=== PATIENT | female | born 1980 | race American Indian/Alaskan Native ===

== ENCOUNTER 2017-10-07 01:21 | Emergency (ER) | payer OTHER ==
[2017-10-07 01:41] VITALS: BP 114/77
[2017-10-07] MEDS ORDERED: ULTRAM PO ONE (03:54)
--- NOTE | 2017-10-07 03:58 | Emergency Department Report ---
ED ENT HPI - General Chief complaint: Dental/Oral Stated complaint: TOOTHACHE,HEADACHE Source: patient Mode of arrival: Ambulatory Limitations: No Limitations - History of Present Illness Initial comments: 37-year-old -[place] female comes to the emergency room reporting that she has right-sided lower tooth a pain and feels that her right side of her face is swollen for 2 days. Patient reports this is taken extra strength Tylenol as well as Motrin and pain still present. Patient reports that she is unable to chew or eat on that side. She denies any past medical history currently takes no medication on a daily basis and has no known drug allergies. MD complaint: tooth pain -: days(s) (2) Location: tooth # (30,31) Severity: severe Severity scale (0 -10): 10 Quality: aching, constant Consistency: constant Improves with: none Worsens with: none Associated Symptoms: toothache. denies: gum swelling - Related Data Previous Rx's Medication Instructions Recorded Last Taken Type Amoxicillin [Amoxicillin TAB] 875 mg PO BID 10 Days #20 tablet 10/07/17 Unknown Rx traMADol [Ultram 50 MG tab] 50 mg PO Q6HR PRN #20 tablet 10/07/17 Unknown Rx Allergies Allergy/AdvReac Type Severity Reaction Status Date / Time No Known Allergies Allergy Unverified 10/07/17 01:35 ED Dental HPI - General Chief complaint: Dental/Oral Stated complaint: TOOTHACHE,HEADACHE Source: patient Mode of arrival: Ambulatory Limitations: No Limitations - Related Data Previous Rx's Medication Instructions Recorded Last Taken Type Amoxicillin [Amoxicillin TAB] 875 mg PO BID 10 Days #20 tablet 10/07/17 Unknown Rx traMADol [Ultram 50 MG tab] 50 mg PO Q6HR PRN #20 tablet 10/07/17 Unknown Rx Allergies Allergy/AdvReac Type Severity Reaction Status Date / Time No Known Allergies Allergy Unverified 10/07/17 01:35 ED Review of Systems ROS: Stated complaint: TOOTHACHE,HEADACHE Other details as noted in HPI Comment: All other systems reviewed and negative ENT: ear pain (right), dental pain (right lower jaw) ED Past Medical Hx - Past Medical History Previous Medical History?: No - Surgical History Past Surgical History?: No - Social History Smoking Status: Current Every Day Smoker - Medications Home Medications: Home Medications Medication Instructions Recorded Confirmed Last Taken Type Amoxicillin [Amoxicillin TAB] 875 mg PO BID 10 Days #20 tablet 10/07/17 Unknown Rx traMADol [Ultram 50 MG tab] 50 mg PO Q6HR PRN #20 tablet 10/07/17 Unknown Rx ED Physical Exam - General Limitations: No Limitations General appearance: alert, in no apparent distress - Head Head exam: Present: atraumatic, normocephalic - Eye Eye exam: Present: normal appearance - Expanded ENT Exam Expanded Teeth exam: Present: dental tenderness # (30,31). Absent: gingival enlargement Throat exam: Negative: other - Neck Neck exam: Present: normal inspection ED Course Vital Signs 10/07/17 01:36 Temperature 97.8 F Pulse Rate 67 Respiratory 18 Rate Blood Pressure 114/77 O2 Sat by Pulse 98 Oximetry Critical care attestation.: If time is entered above; I have spent that time in minutes in the direct care of this critically ill patient, excluding procedure time. ED Disposition Clinical Impression: Toothache Disposition: DC- TO HOME OR SELFCARE Is pt being admited?: No Does the pt Need Aspirin: No Condition: Stable Instructions: Toothache (ED) Additional Instructions: Please take antibiotics as prescribed. Pain medication as needed. Follow up with her dentist in the next 24-48 hours. Prescriptions: Amoxicillin [Amoxicillin TAB] 875 mg PO BID 10 Days #20 tablet traMADol [Ultram 50 MG tab] 50 mg PO Q6HR PRN #20 tablet PRN Reason: Pain Referrals: PRIMARY CARE,MD [Primary Care Provider] - 3-5 Days your,dentist [Other] - 3-5 Days Forms: Work/School Release Form(ED)
== END 2017-10-07 04:15 | disposition home or self-care (01) ==
LOC: ED 01:21
DX: K08.89 Other specified disorders of teeth and supporting structures (principal); F17.200 Nicotine dependence, unspecified, uncomplicated
CPT/HCPCS: 99282